=== PATIENT | male | born 1960 | race Caucasian/White ===

== ENCOUNTER 2023-05-06 16:33 | Emergency (ER) | payer OTHER ==
[2023-05-06] MEDS ORDERED: Clindamycin 150 MG CAP ONE ×2 (16:57→16:59)
== END 2023-05-06 17:09 | disposition home or self-care (01) ==
LOC: BURERS 16:33
DX: L03.115 Cellulitis of right lower limb (principal); E03.9 Hypothyroidism, unspecified; E78.2 Mixed hyperlipidemia
CPT/HCPCS: 99283